=== PATIENT | female | born 1995 | race African-American/Black ===

== ENCOUNTER 2021-08-10 11:37 | Emergency (ER) | payer BC ==
[2021-08-10] MEDS ORDERED: Boostrix 0.5 ML (Tdap) VIAL ONE (13:04)
== END 2021-08-10 13:25 | disposition home or self-care (01) ==
LOC: ERS 11:37
DX: S61.411A Laceration without foreign body of right hand, initial encounter (principal); M19.90 Unspecified osteoarthritis, unspecified site; W26.0XXA Contact with knife, initial encounter
CPT/HCPCS: 12001; 90471; 90715